=== PATIENT | female | born 1940 | race Asian ===

== ENCOUNTER 2018-07-09 09:42 | Emergency (ER) | payer OTHER ==
[~2018-07-09] VITALS: Ht 157.5 cm; Wt 49.9 kg
[2018-07-09 09:45] VITALS: BP_SYST 125
[2018-07-09] MEDS ORDERED: PIPERACILLIN/TAZO 3.38 GM in NS 50 ML IV ONE (10:30)
[2018-07-09 11:47] LABS: HEMATOCRIT 31.7 % (36-48); HEMOGLOBIN 10.9 g/dL (12.0-16.0); MEAN CORPUSCULAR HEMOGLOBIN 31 pg (27-31); MEAN CORPUSCULAR HGB CONC 34 % (32-36); MEAN CORPUSCULAR VOLUME 90 fL (79.0-98.0); PLATELET COUNT (AUTO) 157 K/uL (130-430); RED BLOOD CELL COUNT(AUTO) 3.54 MIL/uL (4.2-6.2); RED CELL DISTRIBUTION WIDTH 12.8 % (9.0-15.0)
[2018-07-09 11:51] LABS: WHITE BLOOD COUNT (AUTO) 2.8 K/uL (4.8-10.8)
[2018-07-09] MEDS ORDERED: PIPERACILLIN/TAZOBACTAM 3.375 GM/VIAL (ZOSYN) IV ONE (12:00)
[2018-07-09 12:02] LABS: PROTHROMBIN TIME 10.7 SECS (9.5-12.5)
[2018-07-09 12:07] LABS: ANION GAP 8 (5-15); CALCIUM 9.5 mg/dL (8.4-11.0); CHLORIDE 103 mmol/L (98-107); CREATININE 1.12 mg/dL (0.55-1.30); GLUCOSE 119 mg/dL (70-99); POTASSIUM 4.2 mmol/L (3.5-5.1); SODIUM SERUM 140 mmol/L (136-145); UREA NITROGEN, BLOOD 11 mg/dL (8-21)
[2018-07-09 12:12] LABS: ALANINE AMINOTRANSFERASE 18 U/L (12-78); ALBUMIN 3.4 g/dL (3.4-4.8); ASPARTATE AMINOTRANSFERASE 25 U/L (10-37); LIPASE 386 U/L (73-393); TOTAL BILIRUBIN 0.7 mg/dL (0.0-1.0)
[2018-07-09 12:14] LABS: ATYPICAL LYMPHOCYTES % 0 % (0-0); BAND % (MANUAL) 0 % (0-6); BASOPHILS % (MANUAL) 0 % (0-2); EOSINOPHILS % (MANUAL) 1 % (0-7); LYMPHOCYTES % (MANUAL) 62 % (20-46); MONOCYTES % (MANUAL) 7 % (0-11)
[2018-07-09 12:21] LABS: BILIRUBIN,URINE NEGATIVE (NEGATIVE); CLARITY/URINE SL HAZY (CLEAR); COLOR,URINE YELLOW (YELLOW); GLUCOSE,URINE NEGATIVE (NEGATIVE); KETONES,URINE NEGATIVE (NEGATIVE); LEUKOCYTE ESTERASE ,URINE 1+ (NEGATIVE); NITRITE, URINE NEGATIVE (NEGATIVE); PROTEIN URINE NEGATIVE (NEGATIVE); UROBILINOGEN,URINE 0.2 (0.2-1.0)
[2018-07-09 12:27] LABS: BLOOD, URINE TRACE (NEGATIVE)
[2018-07-09] MEDS ORDERED: DIPHENOXYLATE HCL/ATROP SULF 2.5 MG TAB PO ONE (12:30)
[2018-07-09 12:31] LABS: BACTERIA,URINE MODERATE /HPF (None Seen); MUCUS,URINE 1+ /LPF (None Seen); RBC,URINE 0-3 /HPF (0-3)
[2018-07-09 13:11] VITALS: BP_SYST 122
== END 2018-07-09 13:11 | disposition home or self-care (01) ==
LOC: SED 09:42
DX: K52.9 Noninfective gastroenteritis and colitis, unspecified (principal); N39.0 Urinary tract infection, site not specified; R03.0 Elevated blood-pressure reading, without diagnosis of hypertension; Z85.3 Personal history of malignant neoplasm of breast
CPT/HCPCS: 36415; 71045; 74176; 80053; 81000; 83605; 83690; 85007; 85027; 85610; 87040; 87086; 93005; 96365; 99284; J2543

== ENCOUNTER 2018-08-16 08:59 | Inpatient (IN) | payer OTHER ==
[~2018-08-16] VITALS: Ht 157.5 cm; Wt 51.7 kg
[2018-08-16 09:20] VITALS: BP_SYST 139
[2018-08-16] MEDS ORDERED: NACL 0.9% 1,000 ML IV ONE (09:30)
[2018-08-16 10:06] LABS: HEMATOCRIT 29.4 % (36-48); HEMOGLOBIN 9.9 g/dL (12.0-16.0); MEAN CORPUSCULAR HEMOGLOBIN 33 pg (27-31); MEAN CORPUSCULAR HGB CONC 34 % (32-36); MEAN CORPUSCULAR VOLUME 97 fL (79.0-98.0); PLATELET COUNT (AUTO) 73 K/uL (130-430); RED BLOOD CELL COUNT(AUTO) 3.03 MIL/uL (4.2-6.2); RED CELL DISTRIBUTION WIDTH 23.9 % (9.0-15.0)
[2018-08-16 10:15] LABS: ANION GAP 5 (5-15); CALCIUM 8.2 mg/dL (8.4-11.0); CHLORIDE 96 mmol/L (98-107); CREATININE 0.54 mg/dL (0.55-1.30); GLUCOSE 147 mg/dL (70-99); POTASSIUM 3.7 mmol/L (3.5-5.1); SODIUM SERUM 130 mmol/L (136-145); UREA NITROGEN, BLOOD 21 mg/dL (8-21)
[2018-08-16 10:20] LABS: ALANINE AMINOTRANSFERASE 38 U/L (12-78); ALBUMIN 3.1 g/dL (3.4-4.8); ASPARTATE AMINOTRANSFERASE 19 U/L (10-37); TOTAL BILIRUBIN 0.6 mg/dL (0.0-1.0)
[2018-08-16 10:39] LABS: BAND % (MANUAL) 22 % (0-6); BASOPHILS % (MANUAL) 0 % (0-2); EOSINOPHILS % (MANUAL) 0 % (0-7); LYMPHOCYTES % (MANUAL) 14 % (20-46); MONOCYTES % (MANUAL) 2 % (0-11)
[2018-08-16] MEDS ORDERED: cefTRIAXone 1 GM IVPB PREMIX 50 ML IV ONE (11:00)
[2018-08-16] MEDS ORDERED: methylPREDNISolone SOD SUCC/PF 62.5 MG/ML VIAL IVP ONE (11:00)
[2018-08-16 11:29] LABS: BILIRUBIN,URINE NEGATIVE (NEGATIVE); BLOOD, URINE NEGATIVE (NEGATIVE); CLARITY/URINE CLEAR (CLEAR); COLOR,URINE YELLOW (YELLOW); GLUCOSE,URINE NEGATIVE (NEGATIVE); KETONES,URINE NEGATIVE (NEGATIVE); LEUKOCYTE ESTERASE ,URINE NEGATIVE (NEGATIVE); NITRITE, URINE POSITIVE (NEGATIVE); PH,URINE 5.5 (5.0-8.0); PROTEIN URINE NEGATIVE (NEGATIVE); UROBILINOGEN,URINE 0.2 (0.2-1.0)
[2018-08-16] MEDS ORDERED: IOHEXOL 350 mgI/mL, 150 ML INFUS..BTL IV ONE (13:54)
[2018-08-16] MEDS ORDERED: DEC4 PO (14:58)
[2018-08-16] MEDS ORDERED: RANI300T7 PO (14:58)
[2018-08-16] MEDS ORDERED: PALB125C PO (15:01)
[2018-08-16] MEDS ORDERED: TYC3 PO (15:01)
[2018-08-16] MEDS ORDERED: MONT10TA25 PO (15:01)
[2018-08-16] MEDS ORDERED: IRBE300T40 PO (15:01)
[2018-08-16] MEDS ORDERED: FEM2.5 PO (15:02)
[2018-08-16] MEDS ORDERED: *HEPARIN PER PHARMACY XX ONE (15:15)
[2018-08-16 16:50] VITALS: BP_SYST 142
[2018-08-16] MEDS: PIPERACILLIN/TAZO 3.375/DEX-IS 50 ML IV SCH ×2 (18:00→23:40)
[2018-08-16] MEDS ORDERED: methylPREDNISolone SOD SUCC/PF 62.5 MG/ML VIAL IVP SCH ×2 (18:00)
[2018-08-16] MEDS: methylPREDNISolone SOD SUCC/PF 62.5 MG/ML VIAL IVP SCH ×2 (18:00→21:03)
[2018-08-16 20:00] VITALS: BP_SYST 112
[2018-08-16] MEDS ORDERED: HEPARIN SODIUM,PORCINE 2000 UNITS/0.4 ML BOLUS IVP PRN (20:00)
[2018-08-16] MEDS ORDERED: HEPARIN 25,000 UNITS in 250 ML PREMIX IV PRN (20:00)
[2018-08-16] MEDS ORDERED: HEPARIN SODIUM,PORCINE 3000 UNITS/0.6 ML BOLUS IVP PRN (20:00)
[2018-08-16] MEDS ORDERED: DECADRON 4 MG TABLET PO SCH (21:00)
[2018-08-16] MEDS ORDERED: guaiFENesin/DEXTROMETHORPHAN 10 ML UDC PO PRN (21:00)
[2018-08-16] MEDS ORDERED: ALBUTEROL SULFATE 0.083% 2.5 MG/3 ML VIAL.NEB INH PRN (21:00)
[2018-08-16] MEDS: MONTELUKAST 10 MG TABLET PO SCH (21:18)
[2018-08-16 22:05] VITALS: BP_SYST 142
[2018-08-17 02:36] VITALS: BP_SYST 149
[2018-08-17] MEDS: methylPREDNISolone SOD SUCC/PF 62.5 MG/ML VIAL IVP SCH ×3 (03:48→17:09)
[2018-08-17] MEDS: PIPERACILLIN/TAZO 3.375/DEX-IS 50 ML IV SCH ×3 (06:28→17:07)
[2018-08-17 08:35] LABS: HEMOGLOBIN 9.2 g/dL (12.0-16.0); MEAN CORPUSCULAR HEMOGLOBIN 33 pg (27-31); MEAN CORPUSCULAR HGB CONC 34 % (32-36); MEAN CORPUSCULAR VOLUME 97 fL (79.0-98.0); RED BLOOD CELL COUNT(AUTO) 2.79 MIL/uL (4.2-6.2); RED CELL DISTRIBUTION WIDTH 24.1 % (9.0-15.0)
[2018-08-17 08:40] VITALS: BP_SYST 142
[2018-08-17 08:41] LABS: PLATELET COUNT (AUTO) 44 K/uL (130-430); WHITE BLOOD COUNT (AUTO) 1.1 K/uL (4.8-10.8)
[2018-08-17] MEDS ORDERED: IRBESARTAN 150 MG TABLET (AVAPRO) PO SCH (09:00)
[2018-08-17] MEDS: VALSARTAN 160 MG TABLET (DIOVAN) PO SCH ×2 (09:00→09:31)
[2018-08-17] MEDS: LETROZOLE 2.5 MG TABLET (FEMARA) PO SCH (09:32)
[2018-08-17] MEDS: IRBESARTAN 300 MG PO SCH (10:33)
[2018-08-17 11:06] LABS: BASOPHILS % (AUTO) 0.1 % (0.0-2.0); EOSINOPHILS % (AUTO) 0.3 % (0.0-4.0); LYMPHOCYTES # (AUTO) 0.1 K/uL (1.0-5.5); LYMPHOCYTES % (AUTO) 6.7 % (20.5-51.5); NEUTROPHILS % (AUTO) 90.9 % (40.0-70.0)
[2018-08-17] MEDS: LEVOFLOXACIN 500 MG/D5W 100 ML IV SCH (11:30)
[2018-08-17] MEDS ORDERED: PIPERACILLIN/TAZO 3.375/DEX-IS 50 ML IV SCH (12:00)
[2018-08-17 12:02] VITALS: BP_SYST 121
[2018-08-17] MEDS: IPRATROPIUM/ALBUTEROL SULFATE 3 ML AMPUL.NEB (DUONEB) INH SCH ×2 (15:00→21:23)
[2018-08-17 16:10] VITALS: BP_SYST 120
[2018-08-17] MEDS: MONTELUKAST 10 MG TABLET PO SCH (17:06)
[2018-08-17] MEDS ORDERED: COMMUNICATION ORDER XX ONE (19:45)
[2018-08-17 20:00] VITALS: BP_SYST 143
[2018-08-17] MEDS: GENTAMICIN SULFATE 160 MG in NS 100 ML IV SCH (20:42)
[2018-08-18 00:36] VITALS: BP_SYST 135
[2018-08-18] MEDS: methylPREDNISolone SOD SUCC/PF 62.5 MG/ML VIAL IVP SCH ×3 (02:05→17:47)
[2018-08-18] MEDS: IPRATROPIUM/ALBUTEROL SULFATE 3 ML AMPUL.NEB (DUONEB) INH SCH ×3 (07:14→20:06)
[2018-08-18 07:33] LABS: WHITE BLOOD COUNT (AUTO) 2.5 K/uL (4.8-10.8)
[2018-08-18 07:34] LABS: HEMATOCRIT 27.9 % (36-48); HEMOGLOBIN 9.4 g/dL (12.0-16.0); MEAN CORPUSCULAR HEMOGLOBIN 33 pg (27-31); MEAN CORPUSCULAR HGB CONC 34 % (32-36); MEAN CORPUSCULAR VOLUME 98 fL (79.0-98.0); RED BLOOD CELL COUNT(AUTO) 2.84 MIL/uL (4.2-6.2)
[2018-08-18 07:41] LABS: ALANINE AMINOTRANSFERASE 29 U/L (12-78); ALBUMIN 2.3 g/dL (3.4-4.8); ANION GAP 9 (5-15); ASPARTATE AMINOTRANSFERASE 16 U/L (10-37); CALCIUM 8.2 mg/dL (8.4-11.0); CHLORIDE 97 mmol/L (98-107); CREATININE 0.52 mg/dL (0.55-1.30); GLUCOSE 190 mg/dL (70-99); POTASSIUM 3.1 mmol/L (3.5-5.1); SODIUM SERUM 135 mmol/L (136-145); TOTAL BILIRUBIN 0.5 mg/dL (0.0-1.0); UREA NITROGEN, BLOOD 16 mg/dL (8-21)
[2018-08-18 07:56] LABS: PLATELET COUNT (AUTO) 32 K/uL (130-430)
[2018-08-18 08:27] VITALS: BP_SYST 164
[2018-08-18] MEDS: IRBESARTAN 300 MG PO SCH (09:31)
[2018-08-18] MEDS: LETROZOLE 2.5 MG TABLET (FEMARA) PO SCH (09:36)
[2018-08-18 10:25] LABS: ATYPICAL LYMPHOCYTES % 0 % (0-0); BAND % (MANUAL) 23 % (0-6); BASOPHILS % (MANUAL) 0 % (0-2); EOSINOPHILS % (MANUAL) 0 % (0-7); LYMPHOCYTES % (MANUAL) 3 % (20-46); METAMYELOCYTES % 3 % (0-0); MONOCYTES % (MANUAL) 0 % (0-11)
[2018-08-18] MEDS: LEVOFLOXACIN 500 MG/D5W 100 ML IV SCH (11:03)
[2018-08-18] MEDS ORDERED: POTASSIUM CHLORIDE 20 MEQ TAB.PRT.SR PO ONE (13:00)
[2018-08-18 13:03] VITALS: BP_SYST 144
[2018-08-18 16:37] VITALS: BP_SYST 142
[2018-08-18] MEDS: MONTELUKAST 10 MG TABLET PO SCH (17:47)
[2018-08-18] MEDS: GENTAMICIN SULFATE 160 MG in NS 100 ML IV SCH (17:47)
[2018-08-18 19:40] VITALS: BP_SYST 150
[2018-08-19 00:19] VITALS: BP_SYST 135
[2018-08-19] MEDS: methylPREDNISolone SOD SUCC/PF 62.5 MG/ML VIAL IVP SCH ×3 (02:38→18:43)
[2018-08-19 07:04] LABS: ANION GAP 7 (5-15); CHLORIDE 94 mmol/L (98-107); CREATININE 0.49 mg/dL (0.55-1.30); GLUCOSE 229 mg/dL (70-99); POTASSIUM 3.7 mmol/L (3.5-5.1); SODIUM SERUM 130 mmol/L (136-145); UREA NITROGEN, BLOOD 15 mg/dL (8-21)
[2018-08-19 07:11] LABS: HEMATOCRIT 26.2 % (36-48); MEAN CORPUSCULAR HEMOGLOBIN 33 pg (27-31); MEAN CORPUSCULAR HGB CONC 34 % (32-36); MEAN CORPUSCULAR VOLUME 98 fL (79.0-98.0); RED BLOOD CELL COUNT(AUTO) 2.69 MIL/uL (4.2-6.2); RED CELL DISTRIBUTION WIDTH 24.1 % (9.0-15.0); WHITE BLOOD COUNT (AUTO) 2.9 K/uL (4.8-10.8)
[2018-08-19] MEDS: IPRATROPIUM/ALBUTEROL SULFATE 3 ML AMPUL.NEB (DUONEB) INH SCH ×3 (07:14→21:25)
[2018-08-19 07:17] LABS: PLATELET COUNT (AUTO) 32 K/uL (130-430)
[2018-08-19 08:10] VITALS: BP_SYST 149
[2018-08-19 08:34] LABS: BAND % (MANUAL) 15 % (0-6); BASOPHILS % (MANUAL) 0 % (0-2); EOSINOPHILS % (MANUAL) 0 % (0-7); LYMPHOCYTES % (MANUAL) 4 % (20-46); MONOCYTES % (MANUAL) 2 % (0-11)
[2018-08-19] MEDS: IRBESARTAN 300 MG PO SCH (09:36)
[2018-08-19] MEDS: LETROZOLE 2.5 MG TABLET (FEMARA) PO SCH (09:37)
[2018-08-19] MEDS: LEVOFLOXACIN 500 MG/D5W 100 ML IV SCH (10:58)
[2018-08-19 12:17] VITALS: BP_SYST 143
[2018-08-19] MEDS ORDERED: [UNRECOGNIZED DRUG - OTHER] TP PRN (16:30)
[2018-08-19 16:35] VITALS: BP_SYST 132
[2018-08-19] MEDS: GENTAMICIN SULFATE 160 MG in NS 100 ML IV SCH (18:44)
[2018-08-19] MEDS: MONTELUKAST 10 MG TABLET PO SCH (20:13)
[2018-08-19 20:15] VITALS: BP_SYST 152
[2018-08-20 00:40] VITALS: BP_SYST 150
[2018-08-20] MEDS: methylPREDNISolone SOD SUCC/PF 62.5 MG/ML VIAL IVP SCH ×2 (03:56→10:00)
[2018-08-20 07:48] VITALS: BP_SYST 143
[2018-08-20] MEDS: IPRATROPIUM/ALBUTEROL SULFATE 3 ML AMPUL.NEB (DUONEB) INH SCH (07:54)
[2018-08-20] MEDS: IRBESARTAN 300 MG PO SCH (09:08)
[2018-08-20] MEDS: LETROZOLE 2.5 MG TABLET (FEMARA) PO SCH (09:09)
[2018-08-20 11:11] VITALS: BP_SYST 135
== END 2018-08-20 12:06 | disposition home or self-care (01) | DRG 871 ==
LOC: SED 08:59 → STU 15:07
PROVIDERS: ADMIT Internal Medicine Hospice and Palliative Medicine; ATTEND Internal Medicine Hospice and Palliative Medicine
DX: A41.59 Other Gram-negative sepsis (principal); J15.0 Pneumonia due to Klebsiella pneumoniae; C79.51 Secondary malignant neoplasm of bone; D61.818 Other pancytopenia; M48.54XA Collapsed vertebra, not elsewhere classified, thoracic region, initial encounter for fracture; N12 Tubulo-interstitial nephritis, not specified as acute or chronic; C50.919 Malignant neoplasm of unspecified site of unspecified female breast; D89.9 Disorder involving the immune mechanism, unspecified; I11.9 Hypertensive heart disease without heart failure; J20.9 Acute bronchitis, unspecified; R79.1 Abnormal coagulation profile; Z90.10 Acquired absence of unspecified breast and nipple
CPT/HCPCS: 36415; 71045; 78580-TC; 80048; 80053; 81003; 83605; 83880; 84484; 85007; 85025; 85027; 85379; 85730-TC; 87040-TC; 87086; 87186-TC; 93005; 94640; 94760; 96361; 96365; 96375; 99285; A9540; G0378; J0696; J1580; J1644; J1956; J2543; J2930; J7030; J7613; J7620; Q9967

== ENCOUNTER 2018-09-07 21:09 | Inpatient (IN) | payer OTHER ==
[~2018-09-07] VITALS: Ht 157.5 cm; Wt 54.0 kg
[~2018-09-07 21:09] MED LIST: DEC4 PO; FEM2.5 PO; IRBE300T40 PO; MONT10TA25 PO; PALB125C PO; RANI300T7 PO; TYC3 PO
[2018-09-07 21:54] VITALS: BP_SYST 100
[2018-09-07] MEDS ORDERED: NACL 0.9% 1,000 ML IV ONE ×2 (22:30→23:30)
[2018-09-07 23:02] LABS: HEMATOCRIT 28.6 % (36-48); HEMOGLOBIN 9.8 g/dL (12.0-16.0); MEAN CORPUSCULAR HEMOGLOBIN 34 pg (27-31); MEAN CORPUSCULAR HGB CONC 34 % (32-36); MEAN CORPUSCULAR VOLUME 100 fL (79.0-98.0); PLATELET COUNT (AUTO) 171 K/uL (130-430); RED BLOOD CELL COUNT(AUTO) 2.86 MIL/uL (4.2-6.2); RED CELL DISTRIBUTION WIDTH 25.4 % (9.0-15.0); WHITE BLOOD COUNT (AUTO) 9.5 K/uL (4.8-10.8)
[2018-09-07 23:05] LABS: BILIRUBIN,URINE NEGATIVE (NEGATIVE); BLOOD, URINE NEGATIVE (NEGATIVE); CLARITY/URINE CLEAR (CLEAR); COLOR,URINE YELLOW (YELLOW); GLUCOSE,URINE 3+ (NEGATIVE); KETONES,URINE NEGATIVE (NEGATIVE); LEUKOCYTE ESTERASE ,URINE NEGATIVE (NEGATIVE); NITRITE, URINE NEGATIVE (NEGATIVE); PH,URINE 7.5 (5.0-8.0); PROTEIN URINE 1+ (NEGATIVE)
[2018-09-07 23:13] LABS: BACTERIA,URINE FEW /HPF (None Seen); RBC,URINE 0-3 /HPF (0-3)
[2018-09-07 23:13] LABS: ANION GAP 9 (5-15); CALCIUM 7.8 mg/dL (8.4-11.0); CHLORIDE 89 mmol/L (98-107); CREATININE 0.62 mg/dL (0.55-1.30); GLUCOSE 198 mg/dL (70-99); POTASSIUM 3.5 mmol/L (3.5-5.1); SODIUM SERUM 131 mmol/L (136-145); UREA NITROGEN, BLOOD 20 mg/dL (8-21)
[2018-09-07 23:14] LABS: HYALINE CASTS, URINE 0-10 /LPF (None Seen)
[2018-09-07 23:17] LABS: INR 1.1 (0.8-1.2); PROTHROMBIN TIME 11.5 SECS (9.5-12.5)
[2018-09-07 23:18] LABS: ALANINE AMINOTRANSFERASE 54 U/L (12-78); ALBUMIN 2.9 g/dL (3.4-4.8); ASPARTATE AMINOTRANSFERASE 29 U/L (10-37); TOTAL BILIRUBIN 0.8 mg/dL (0.0-1.0)
[2018-09-07 23:23] LABS: ATYPICAL LYMPHOCYTES % 0 % (0-0); BAND % (MANUAL) 16 % (0-6); BASOPHILS % (MANUAL) 0 % (0-2); CORRECTED WHITE BLOOD COUNT 8.6 K/uL (4.5-11.0); EOSINOPHILS % (MANUAL) 0 % (0-7); LYMPHOCYTES % (MANUAL) 4 % (20-46); METAMYELOCYTES % 1 % (0-0); MONOCYTES % (MANUAL) 6 % (0-11); MYELOCYTES % 0 % (0-0); PROMYELOCYTES % 1 % (0-0)
[2018-09-07] MEDS ORDERED: ASPIRIN 81 MG TAB.CHEW PO ONE (23:30)
[2018-09-07] MEDS ORDERED: LEVOFLOXACIN 500 MG/D5W 100 ML IV ONE (23:30)
[2018-09-07] MEDS ORDERED: VITD400 PO (23:40)
[2018-09-07] MEDS ORDERED: AMLO5TAB4 PO (23:40)
[2018-09-08] MEDS ORDERED: ACETAMINOPHEN 325 MG TABLET PO PRN ×2 (01:00→04:00)
[2018-09-08 01:49] VITALS: BP_SYST 141
[2018-09-08] MEDS: NACL 0.9% 1,000 ML IV SCH ×3 (03:38→21:17)
[2018-09-08] MEDS ORDERED: ACETAMINOPHEN/CODEINE 300 MG-30 MG TABLET PO PRN (03:45)
[2018-09-08] MEDS ORDERED: DEXTROSE 50% JECT 50 ML DISP.SYRIN IVP PRN (04:00)
[2018-09-08] MEDS ORDERED: PIPERACILLIN/TAZO 4.5 GM in NS 100 ML IV SCH (06:00)
[2018-09-08] MEDS ORDERED: PIPERACILLIN/TAZOBACTAM 3.375 GM/VIAL (ZOSYN) IV ONE (06:00)
[2018-09-08] MEDS ORDERED: PIPERACILLIN/TAZO 3.375/DEX-IS 50 ML IV SCH (06:00)
[2018-09-08] MEDS: amLODIPine BESYLATE 5 MG TABLET PO SCH (09:00)
[2018-09-08] MEDS ORDERED: IRBESARTAN 150 MG TABLET (AVAPRO) PO SCH (09:00)
[2018-09-08] MEDS: LOSARTAN POTASSIUM 50 MG TABLET (COZAAR) PO SCH (09:00)
[2018-09-08] MEDS: CHOLECALCIFEROL (VITAMIN D3) 2,000 UNIT TABLET PO SCH (09:00)
[2018-09-08] MEDS: DECADRON 4 MG TABLET PO SCH ×2 (09:00→21:17)
[2018-09-08] MEDS: LETROZOLE 2.5 MG TABLET (FEMARA) PO SCH (09:00)
[2018-09-08] MEDS ORDERED: CEFEPIME 1 GM in D5W 50 ML IV ONE (11:00)
[2018-09-08] MEDS: INSULIN REGULAR, HUMAN 100 UNITS/ML, 10 ML VIAL (novoLIN R) SUBCUT PRN ×2 (11:45→21:21)
[2018-09-08 12:04] VITALS: BP_SYST 146
[2018-09-08 16:39] VITALS: BP_SYST 132
[2018-09-08] MEDS: MONTELUKAST 10 MG TABLET PO SCH (17:18)
[2018-09-08 20:00] VITALS: BP_SYST 144
[2018-09-08] MEDS: CEFEPIME 1 GM in D5W 50 ML IV SCH (21:17)
[2018-09-09 00:46] VITALS: BP_SYST 139
[2018-09-09] MEDS: NACL 0.9% 1,000 ML IV SCH ×2 (06:03→17:26)
[2018-09-09 06:46] LABS: ANION GAP 7 (5-15); CALCIUM 7.7 mg/dL (8.4-11.0); CHLORIDE 97 mmol/L (98-107); CREATININE 0.29 mg/dL (0.55-1.30); GLUCOSE 131 mg/dL (70-99); POTASSIUM 3.3 mmol/L (3.5-5.1); SODIUM SERUM 132 mmol/L (136-145); UREA NITROGEN, BLOOD 8 mg/dL (8-21)
[2018-09-09 07:33] LABS: HEMATOCRIT 27.2 % (36-48); HEMOGLOBIN 9.5 g/dL (12.0-16.0); MEAN CORPUSCULAR HEMOGLOBIN 36 pg (27-31); MEAN CORPUSCULAR VOLUME 105 fL (79.0-98.0); WHITE BLOOD COUNT (AUTO) 8.2 K/uL (4.8-10.8)
[2018-09-09 07:34] LABS: MEAN CORPUSCULAR HGB CONC 38 % (32-36)
[2018-09-09 07:35] LABS: BASOPHILS % (AUTO) 0.2 % (0.0-2.0); LYMPHOCYTES # (AUTO) 0.3 K/uL (1.0-5.5); MONOCYTES # (AUTO) 0.1 K/uL (0.0-1.0); MONOCYTES % (AUTO) 1.8 % (1.7-9.3); NEUTROPHILS # (AUTO) 7.7 K/uL (1.8-7.7); PLATELET COUNT (AUTO) 138 K/uL (130-430); RED CELL DISTRIBUTION WIDTH 25.4 % (9.0-15.0)
[2018-09-09 08:39] VITALS: BP_SYST 144
[2018-09-09] MEDS: LOSARTAN POTASSIUM 50 MG TABLET (COZAAR) PO SCH (08:44)
[2018-09-09] MEDS: CHOLECALCIFEROL (VITAMIN D3) 2,000 UNIT TABLET PO SCH (08:44)
[2018-09-09] MEDS: amLODIPine BESYLATE 5 MG TABLET PO SCH (08:45)
[2018-09-09] MEDS: DECADRON 4 MG TABLET PO SCH ×2 (08:45→20:30)
[2018-09-09] MEDS: LETROZOLE 2.5 MG TABLET (FEMARA) PO SCH (08:45)
[2018-09-09] MEDS: CEFEPIME 1 GM in D5W 50 ML IV SCH ×2 (08:45→20:30)
[2018-09-09] MEDS ORDERED: POTASSIUM CHLORIDE 20 MEQ TAB.PRT.SR PO ONE (11:00)
[2018-09-09] MEDS: INSULIN REGULAR, HUMAN 100 UNITS/ML, 10 ML VIAL (novoLIN R) SUBCUT PRN ×2 (11:49→17:31)
[2018-09-09 12:51] VITALS: BP_SYST 142
[2018-09-09 16:28] VITALS: BP_SYST 121
[2018-09-09] MEDS: MONTELUKAST 10 MG TABLET PO SCH (17:26)
[2018-09-09 20:00] VITALS: BP_SYST 140
[2018-09-10 01:14] VITALS: BP_SYST 157
[2018-09-10] MEDS: NACL 0.9% 1,000 ML IV SCH (02:49)
[2018-09-10 06:57] LABS: ANION GAP 8 (5-15); CALCIUM 8.1 mg/dL (8.4-11.0); CHLORIDE 94 mmol/L (98-107); CREATININE 0.36 mg/dL (0.55-1.30); GLUCOSE 169 mg/dL (70-99); SODIUM SERUM 129 mmol/L (136-145); UREA NITROGEN, BLOOD 10 mg/dL (8-21)
[2018-09-10 07:46] LABS: HEMATOCRIT 27.4 % (36-48); HEMOGLOBIN 9.8 g/dL (12.0-16.0); MEAN CORPUSCULAR VOLUME 103 fL (79.0-98.0); RED BLOOD CELL COUNT(AUTO) 2.66 MIL/uL (4.2-6.2); WHITE BLOOD COUNT (AUTO) 7.2 K/uL (4.8-10.8)
[2018-09-10 07:47] LABS: BASOPHILS % (AUTO) 0.2 % (0.0-2.0); LYMPHOCYTES # (AUTO) 0.3 K/uL (1.0-5.5); LYMPHOCYTES % (AUTO) 4.4 % (20.5-51.5); MEAN CORPUSCULAR HEMOGLOBIN 37 pg (27-31); MEAN CORPUSCULAR HGB CONC 36 % (32-36); MONOCYTES # (AUTO) 0.2 K/uL (0.0-1.0); MONOCYTES % (AUTO) 2.6 % (1.7-9.3); NEUTROPHILS # (AUTO) 6.7 K/uL (1.8-7.7); NEUTROPHILS % (AUTO) 92.8 % (40.0-70.0); PLATELET COUNT (AUTO) 158 K/uL (130-430); RED CELL DISTRIBUTION WIDTH 24.8 % (9.0-15.0)
[2018-09-10 08:00] VITALS: BP_SYST 139
[2018-09-10] MEDS ORDERED: POTASSIUM CHLORIDE 20 MEQ TAB.PRT.SR PO SCH (09:00)
[2018-09-10] MEDS: CEFEPIME 1 GM in D5W 50 ML IV SCH ×2 (09:08→18:03)
[2018-09-10] MEDS: LOSARTAN POTASSIUM 50 MG TABLET (COZAAR) PO SCH (09:09)
[2018-09-10] MEDS: DECADRON 4 MG TABLET PO SCH (09:09)
[2018-09-10] MEDS: amLODIPine BESYLATE 5 MG TABLET PO SCH (09:10)
[2018-09-10] MEDS: CHOLECALCIFEROL (VITAMIN D3) 2,000 UNIT TABLET PO SCH (09:10)
[2018-09-10] MEDS: LETROZOLE 2.5 MG TABLET (FEMARA) PO SCH (09:11)
[2018-09-10] MEDS: INSULIN REGULAR, HUMAN 100 UNITS/ML, 10 ML VIAL (novoLIN R) SUBCUT PRN ×2 (11:54→17:38)
[2018-09-10 12:30] VITALS: BP_SYST 152
[2018-09-10] MEDS ORDERED: POTASSIUM CHLORIDE 20 MEQ TAB.PRT.SR PO ONE (14:00)
[2018-09-10] MEDS ORDERED: POTA20TA83 PO (15:36)
[2018-09-10 16:45] VITALS: BP_SYST 145
[2018-09-10] MEDS: MONTELUKAST 10 MG TABLET PO SCH (18:03)
[2018-09-10 18:20] LABS: ANION GAP 4 (5-15); CALCIUM 7.6 mg/dL (8.4-11.0); CHLORIDE 93 mmol/L (98-107); CREATININE 0.55 mg/dL (0.55-1.30); GLUCOSE 267 mg/dL (70-99); SODIUM SERUM 124 mmol/L (136-145); UREA NITROGEN, BLOOD 15 mg/dL (8-21)
[2018-09-10 18:29] VITALS: BP_SYST 145
[2018-09-10] MEDS ORDERED: SODIUM CHLORIDE 500 MG TABLET PO SCH (19:00)
[2018-09-10] MEDS ORDERED: metFORMIN HCL 500 MG TABLET PO SCH (19:00)
[2018-09-10] MEDS ORDERED: SODIUM CHLORIDE 500 MG TABLET PO ONE (19:15)
[2018-09-10] MEDS ORDERED: DECADRON 4 MG TABLET PO SCH (21:00)
[2018-09-10] MEDS ORDERED: CARVEDILOL 6.25 MG TABLET (COREG) PO SCH (21:00)
[2018-09-11] MEDS ORDERED: POTASSIUM CHLORIDE 20 MEQ TAB.PRT.SR PO SCH (09:00)
[2018-09-11] MEDS ORDERED: SODIUM CHLORIDE 500 MG TABLET PO SCH (09:00)
== END 2018-09-10 19:52 | disposition home or self-care (01) | DRG 871 ==
LOC: SED 21:09 → STU 09-08 00:58
PROVIDERS: ADMIT Internal Medicine; ATTEND Internal Medicine
DX: A41.9 Sepsis, unspecified organism (principal); G93.41 Metabolic encephalopathy; J18.9 Pneumonia, unspecified organism; C79.51 Secondary malignant neoplasm of bone; N12 Tubulo-interstitial nephritis, not specified as acute or chronic; E87.1 Hypo-osmolality and hyponatremia; R32 Unspecified urinary incontinence; I10 Essential (primary) hypertension; E87.6 Hypokalemia; E83.51 Hypocalcemia; D63.8 Anemia in other chronic diseases classified elsewhere; C50.919 Malignant neoplasm of unspecified site of unspecified female breast; Z90.10 Acquired absence of unspecified breast and nipple; Z88.8 Allergy status to other drugs, medicaments and biological substances; Z79.899 Other long term (current) drug therapy
CPT/HCPCS: 36415; 70450-TC; 71045; 72128; 80048; 80053; 81000-TC; 82962; 83036; 83605; 84484; 85007; 85025; 85027; 85610-TC; 85730-TC; 87040-TC; 87081; 87086; 93005; 96361; 96365; 99285; G0378; J0692; J1815; J1956; J2543; J7030; J7060; J8540

== ENCOUNTER 2018-09-11 09:47 | Outpatient (CLI) | payer OTHER ==
[~2018-09-11 09:47] MED LIST changes: +AMLO5TAB4 PO; -PALB125C PO; +POTA20TA83 PO; -RANI300T7 PO; +VITD400 PO
[2018-09-11 12:13] LABS: ANION GAP 10 (5-15); CALCIUM 8.3 mg/dL (8.4-11.0); CHLORIDE 93 mmol/L (98-107); CREATININE 0.48 mg/dL (0.55-1.30); GLUCOSE 180 mg/dL (70-99); POTASSIUM 4.4 mmol/L (3.5-5.1); SODIUM SERUM 127 mmol/L (136-145); UREA NITROGEN, BLOOD 18 mg/dL (8-21)
== END 2018-09-11 21:08 | disposition home or self-care (01) ==
LOC: SLB 09:47
PROVIDERS: ATTEND Internal Medicine
DX: E87.1 Hypo-osmolality and hyponatremia (principal)
CPT/HCPCS: 36415; 80048